=== PATIENT | male | born 1960 | race American Indian/Alaskan Native ===

== ENCOUNTER 2021-03-26 06:52 | Day surgery (SDC) | payer OTHER ==
[~2021-03-26] VITALS: Ht 172.7 cm; Wt 104.7 kg
[2021-03-26] VITALS (21 sets, daily range): BP systolic 88–118; BP diastolic 39–80
[~2021-03-26 06:52] MED LIST: ATOR20TA66 PO; HYDR25CA PO; SERT25TA PO; SYN0.088T PO; cefazolin/dext.iso 2gm/100ml IV ONE; famotidine 20mg tablet PO ONE; ringers solution, lacted 1,000 ML IV SCH; vancomycin 1,500 MG in NS 300ml IV soln IV ONE
[2021-03-26] MEDS ORDERED: vancomycin 1,000mg inj ONE (07:09)
[2021-03-26] MEDS ORDERED: epiNEPHrine 1 mg/ml inj ONE (07:09)
[2021-03-26] MEDS ORDERED: morphine 10mg/ml inj. ONE (07:09)
[2021-03-26] MEDS ORDERED: ketorolac trometh. 30mg/ml inj. ONE (07:09)
[2021-03-26] MEDS ORDERED: ROPIVAcaine 0.5% (5mg/ml) 30ml vial ONE ×2 (07:09→11:30)
[2021-03-26] MEDS ORDERED: TRANEXAMIC ACID 1 GM IN NACL,ISO-OS 100 ML IV ONE (08:50)
[2021-03-26] MEDS ORDERED: tetracaine 1% (10mg/ml) pres. free inj. ONE (08:54)
[2021-03-26] MEDS ORDERED: MIDAZolam 1mg/ml 10ml vial ONE (08:56)
[2021-03-26] MEDS ORDERED: fentaNYL/PF 50MCG/1 ML 2ML syringe ONE (08:56)
[2021-03-26] MEDS ORDERED: ringers solution, lacted 1,000 ML IV SCH (10:10)
[2021-03-26] MEDS ORDERED: morphine 4 MG/ML inj SYRINge IV PRN (10:10)
[2021-03-26] MEDS ORDERED: morphine 2 MG/ML inj. syringe IV PRN (10:10)
[2021-03-26] MEDS ORDERED: meperidine/PF 25mg/ml syringe IV PRN ×3 (10:10)
[2021-03-26] MEDS ORDERED: ondansetron/PF 4mg/2ml inj IV PRN (10:10)
[2021-03-26] MEDS ORDERED: ROPIVAcaine 0.2%/PF PUMP/bolus 545 ML ADDCANAL SCH ×2 (10:10→10:17)
[2021-03-26] MEDS ORDERED: ROPIVAcaine 0.2% (10 MG/5 ML) BOLUS INJECTION ADDCANAL PRN (10:10)
[2021-03-26] MEDS ORDERED: ePHEDrine 50MG/ML INJ. ONE (10:56)
[2021-03-26] MEDS ORDERED: propofol inj 20 ML IV ONE ×2 (10:56)
--- NOTE | 2021-03-26 11:35 | NUR ---
PT ARRIVED FROM OR VIA BED WITH ANESTHESIA, DR HARRELL ACCOMPANIED-REPORT GIVEN, VSS, PT AWAKE GIVEN SPINAL, PIV 20G-LR RUNNING, SENSATION NOTED TO BE AT T-5, +PULSES BILAT, F/C IN PLACE-DRAINING URINE, RIGHT KNEE-WRAP IN PLACE WITH COLD PACK AND ON-Q CATHETER
--- NOTE | 2021-03-26 12:24 | NUR ---
DISCUSSED WITH NURSING AT INTERMEDIATE AND DR. BOUDREAUX ABOUT PT GOING BACK TO [facility] INCLUDES THE [facility] TODAY-PT WILL CONTINUE UP ON ORTHO FLOOR UNTIL SPINAL WEARS OFF AND THEN POTENTIALLY TRANSPORT BACK TO INTERMEDIATE.
--- NOTE | 2021-03-26 13:10 | NUR ---
PT AWAKE, VSS, STILL SENSATION AT T-5, +PULSES BILAT, DENIES PAIN, WAITING FOR A BED ON ORTHO.
--- NOTE | 2021-03-26 14:15 | NUR ---
PT A/O X 4, DENIES PAIN, VSS, SENSATION TO LOWER BODY RETURNING SLOWLY-AT T-9 LEVEL UPON TRANSFER TO ORTHO FLOOR, PIV 20G LEFT HAND IN PLACE WITH LR RUNNING AT 100ML/HR, F/C IN PLACE-DRAINING YELLOW URINE, RIGHT KNEE DRSG CDI WITH WRAP AND COLD PAC IN PLACE, SCDS ON, REPORT CALLED TO NATALIE ON ORTHO, EXPLAINED EXPECTATIONS OF PT AND OFFICERS TO HAVE PT RTN TO [facility] ALF ONCE SENSATION RTNS-ORDERS PRESENT FOR CARE UPON DISCHARGE, ALL QUESTIONS ANSWERED, GUARDS PRESENT, TAKEN UP TO ROOM [id number] ATTACHED TO MONITORS, RN IN ROOM.
--- NOTE | 2021-03-26 15:31 | NUR ---
At this time patient is able to feel both lateral and medial sides of knees. Monitoring for full return of sensation.
--- NOTE | 2021-03-26 17:01 | NUR ---
Sensation fully returned to bilateral lower extremities, trialed standing with patient and he was able to tolerate it fine. Called report to [facility], patient is being discharged with 20 gauge iv to right hand for iv antibiotics tonight and i also sent him with the white catheter for the nurses in the infirmary to manage. Educated both patient and infirmary nurse on how to use/discontinue the ON Q pump. Running at 2mls/hr when i discharged him.
[2021-03-26] MEDS ORDERED: atorvastatin 20mg tablet PO SCH (21:00)
[2021-03-26] MEDS ORDERED: hydrOXYzine 25 MG tablet PO SCH (21:00)
[2021-03-27] MEDS ORDERED: sertraline 50mg tablet PO SCH (08:00)
[2021-03-27] MEDS ORDERED: levoTHYROXINE 75mcg tablet PO SCH (08:00)
== END 2021-03-26 17:01 ==
LOC: PAS 06:52 → EDSTATUS 08:30 → EEVIPCON 08:30 → PAS 17:01
PROVIDERS: ATTEND Orthopaedic Surgery
DX: M17.11 Unilateral primary osteoarthritis, right knee (principal); Z98.890 Other specified postprocedural states; M25.561 Pain in right knee; G47.30 Sleep apnea, unspecified; Z79.899 Other long term (current) drug therapy; M19.90 Unspecified osteoarthritis, unspecified site; G89.18 Other acute postprocedural pain; E66.09 Other obesity due to excess calories
CPT/HCPCS: 27447; 64447; 76942; 82948; A6454; C1713; C1758; C1776; J0171; J1885; J2250; J2270; J2704; J2795; J3010; J3370; J7040; J7120; A4215; A4615; A7000; C9520